=== PATIENT | female | born 1975 | race Caucasian/White ===

== ENCOUNTER 2018-05-31 01:31 | Emergency (ER) | payer OTHER ==
[~2018-05-31] VITALS: Ht 160 cm; Wt 127.3 kg
[2018-05-31 01:56] VITALS: BP 160/94
[2018-05-31] MEDS ORDERED: TETANUS/DIPHTHERIA TOX ADSORB ADULT 0.5ML SYR/VIAL (90714) IM ONE (02:45)
== END 2018-05-31 03:29 | disposition home or self-care (01) ==
LOC: M ED 01:31 → EDBD 01:31 → M ED 03:29
DX: S01.81XA Laceration without foreign body of other part of head, initial encounter (principal); W22.8XXA Striking against or struck by other objects, initial encounter; Y92.098 Other place in other non-institutional residence as the place of occurrence of the external cause; F17.200 Nicotine dependence, unspecified, uncomplicated

== ENCOUNTER → 2018-06-28 | Outpatient (CLI) | payer OTHER ==
[2018-06-28 15:49] LABS: BASO # 0.1 10^3/uL (0.0-0.2); EOS # 0.5 10^3/uL (0.0-0.50); EOS % 5.4 % (0.0-3.0); HEMATOCRIT 42.3 % (36.0-47.0); HEMOGLOBIN 14.4 g/dl (12.0-15.5); LYMPH % 36.5 % (24.0-44.0); MEAN CORPUSCULAR HEMOGLOBIN 28.8 pg (27.0-33.0); MEAN CORPUSCULAR VOLUME 84.6 fl (80.0-96.0); MONO # 0.7 10^3/uL (0.0-0.8); MONO % 8.5 % (0.0-5.0); PLATELET COUNT, AUTOMATED 360 10^3/uL (150-450); WHITE BLOOD COUNT 8.3 10^3/uL (4.0-10.0)
[2018-06-28 16:14] LABS: FREE T4 0.91 NG/DL (0.76-1.46); PROLACTIN 13.3 NG/ML; THYROID STIMULATING HORMONE 4.84 uIU/ML (0.358-3.740)
== END ==
LOC: M LAB 08:00
PROVIDERS: ATTEND Obstetrics & Gynecology
DX: N92.0 Excessive and frequent menstruation with regular cycle (principal)

== ENCOUNTER → 2018-07-26 | Outpatient (CLI) | payer OTHER ==
[2018-07-26 18:53] LABS: FREE T4 0.79 NG/DL (0.76-1.46); THYROID STIMULATING HORMONE 5.9 uIU/ML (0.358-3.740)
== END ==
LOC: M LAB 16:31
PROVIDERS: ATTEND Obstetrics & Gynecology
DX: N92.0 Excessive and frequent menstruation with regular cycle (principal); N94.4 Primary dysmenorrhea; R68.82 Decreased libido

== ENCOUNTER → 2018-08-02 | Outpatient (REF) | payer OTHER | LOC: M SFHCPLAZ 15:22 | PROVIDERS: ATTEND Family Medicine | DX: E11.9 Type 2 diabetes mellitus without complications (principal); Z13.6 Encounter for screening for cardiovascular disorders; Z02.1 Encounter for pre-employment examination; G25.81 Restless legs syndrome ==

== ENCOUNTER 2018-11-04 02:00 | Emergency (ER) | payer OTHER ==
[~2018-11-04] VITALS: Ht 160 cm; Wt 109.1 kg
[2018-11-04] MEDS ORDERED: MONT10TA2 (02:07)
[2018-11-04] MEDS ORDERED: IBUP80TA (02:07)
[2018-11-04] MEDS ORDERED: JANU100T (02:07)
[2018-11-04] MEDS ORDERED: ROPI4TAB3 (02:07)
[2018-11-04] MEDS ORDERED: OMEP-218 (02:07)
[2018-11-04] MEDS ORDERED: [UNRECOGNIZED DRUG - CODE] (02:07)
[2018-11-04] MEDS ORDERED: METF500T4 (02:07)
[2018-11-04] MEDS ORDERED: LIDOCAINE W/EPINEPHRINE 1% 20ML VIAL SC ONE (07:15)
[2018-11-04] MEDS ORDERED: KEFL500C17 PO (07:51)
[2018-11-04] MEDS ORDERED: CEPHALEXIN 500 MG CAP PO ONE (08:00)
[2018-11-04 08:27] VITALS: BP 133/84
== END 2018-11-04 08:29 | disposition home or self-care (01) ==
LOC: M ED 02:00
DX: L02.415 Cutaneous abscess of right lower limb (principal); E11.9 Type 2 diabetes mellitus without complications; Z79.84 Long term (current) use of oral hypoglycemic drugs; Z79.899 Other long term (current) drug therapy

== ENCOUNTER 2018-11-06 17:52 | Emergency (ER) | payer OTHER ==
[~2018-11-06] VITALS: Ht 160 cm; Wt 109.1 kg
[~2018-11-06 17:52] MED LIST: IBUP80TA; JANU100T; KEFL500C17 PO; METF500T4; MONT10TA2; OMEP-218; ROPI4TAB3; [UNRECOGNIZED DRUG - CODE]
[2018-11-06 19:36] VITALS: BP 151/109
== END 2018-11-06 19:36 | disposition home or self-care (01) ==
LOC: M ED 17:52
DX: L02.214 Cutaneous abscess of groin (principal); Z48.89 Encounter for other specified surgical aftercare; E11.9 Type 2 diabetes mellitus without complications; Z79.84 Long term (current) use of oral hypoglycemic drugs; Z79.899 Other long term (current) drug therapy

== ENCOUNTER → 2019-04-14 | Outpatient (CLI) | payer OTHER ==
[~2019-04-14] MED LIST changes: +METF-791; -METF500T4
[2019-04-14 14:55] LABS: HEMOGLOBIN 13.3 g/dl (12.0-15.5); MEAN CORPUSCULAR HEMOGLOBIN 27.6 pg (27.0-33.0); MEAN CORPUSCULAR HGB CONC 31.7 g/dl (32.0-36.5); MEAN CORPUSCULAR VOLUME 87.1 fl (80.0-96.0); PLATELET COUNT, AUTOMATED 395 10^3/uL (150-450); RED BLOOD COUNT 4.82 10^6/uL (4.00-5.40); WHITE BLOOD COUNT 7.5 10^3/uL (4.0-10.0)
[2019-04-14 15:11] LABS: HEMOGLOBIN A1c 13.1 %
[2019-04-14 15:26] LABS: BLOOD UREA NITROGEN 8 MG/DL (7-18); CALCIUM LEVEL 8.9 MG/DL (8.5-10.1); CARBON DIOXIDE LEVEL 28 MEQ/L (21-32); CHLORIDE LEVEL 101 MEQ/L (98-107); CREATININE FOR GFR 0.76 MG/DL (0.55-1.30); FREE T4 0.95 NG/DL (0.76-1.46); GLOMERULAR FILTRATION RATE > 60.0 (>58); GLUCOSE, FASTING 334 MG/DL (70-100); POTASSIUM SERUM 4.1 MEQ/L (3.5-5.1); SODIUM LEVEL 137 MEQ/L (136-145)
== END ==
LOC: M LAB 14:00
PROVIDERS: ATTEND Student in an Organized Health Care Education/Training Program
DX: Z01.818 Encounter for other preprocedural examination (principal); E11.9 Type 2 diabetes mellitus without complications; R00.0 Tachycardia, unspecified

== ENCOUNTER → 2019-04-14 | Outpatient (REF) | payer OTHER | LOC: M SFHCPLAZ 13:47 | DX: Z53.9 Procedure and treatment not carried out, unspecified reason (principal) ==